=== PATIENT | female | born 1990 | race African-American/Black ===

== ENCOUNTER → 2016-09-10 | Outpatient (REF) ==
[~2016-09-10] MED LIST: AMOXICILLIN 50500 MG PO; CEPHALEXIN500 M1 PO; LEVEMIR100 U/ML SQ; MOTRIN 600600 MG/TAB PO; NORCO 325 MG-51 TAB PO; NOVLOG SQ; PERCOCET 325 MG1 TA2 PO; PRENATAL1 TA1 PO
== END ==
LOC: WSOH 15:35
DX: Z02.89 Encounter for other administrative examinations (principal)

== ENCOUNTER 2018-03-30 07:32 | Emergency (ER) | payer OTHER, BC ==
[~2018-03-30] VITALS: Ht 157.5 cm; Wt 81.8 kg
[2018-03-30 07:32] VITALS: BP 126/92; PULSE 98; TEMP 98.6
== END 2018-03-30 08:40 | disposition home or self-care (01) ==
LOC: COL.ER 07:32
DX: S53.401A Unspecified sprain of right elbow, initial encounter (principal); S63.602A Unspecified sprain of left thumb, initial encounter; T22.00XA Burn of unspecified degree of shoulder and upper limb, except wrist and hand, unspecified site, initial encounter; V49.9XXA Car occupant (driver) (passenger) injured in unspecified traffic accident, initial encounter